=== PATIENT | male | born 1950 | race Caucasian/White ===

== ENCOUNTER → 2018-03-27 | Outpatient (REF) ==
--- NOTE | 2018-03-27 14:04 | REP ---
BILATERAL HIPS, AP PELVIS: HISTORY: Bilateral hip pain. RIGHT HIP: There is no acute fracture or dislocation. There is mild narrowing of the joint space with associated sclerosis. IMPRESSION: Degenerative change as described above. LEFT HIP: There is no acute fracture or dislocation. There is mild narrowing of the joints spaces with associated sclerosis. IMPRESSION: Degenerative change as described above. Electronically Signed by Sean Altman MD 03/27/2018 02:18 P
== END ==
LOC: M RAD 12:57
PROVIDERS: ATTEND Nurse Practitioner Family
DX: Z00.00 Encounter for general adult medical examination without abnormal findings (principal)

== ENCOUNTER → 2019-05-21 | Outpatient (CLI) | payer OTHER ==
--- NOTE | 2019-05-21 19:04 | REP ---
Clinical: Abnormal liver function tests. Technique: Real time franklin scale ultrasound examination using curved array transducer. Findings: Liver and visualized pancreas are normal in contour, size, echogenicity without focal hepatic or pancreatic lesion identified. The gallbladder is normal and without gallstones, wall thickening, or pericholecystic fluid. No biliary ductal dilatation is appreciated and the common bile duct measures 2.3 mm diameter. Right kidney is normal in reniform shape without hydronephrosis and measures 11.1 x 4.1 x 5.7 cm with 4 cm upper pole cyst. No pelvic fluid or adnexal mass lesion. Impression: 1. Normal liver. 2. 4 cm simple right renal cyst. Electronically Signed by Zeb Santiago MD 05/21/2019 06:56 P
== END ==
LOC: M RAD 09:14
PROVIDERS: ATTEND Nurse Practitioner Family
DX: N28.1 Cyst of kidney, acquired (principal)

== ENCOUNTER → 2020-05-28 | Outpatient (CLI) | payer OTHER | LOC: M LAB 15:19 | PROVIDERS: ATTEND Allergy & Immunology Allergy | DX: T78.05XA Anaphylactic reaction due to tree nuts and seeds, initial encounter (principal) ==

== ENCOUNTER → 2020-06-15 | Outpatient (CLI) | payer OTHER ==
--- NOTE | 2020-06-16 09:32 | REP ---
INDICATION: F/U. COMPARISON: None. TECHNIQUE: AP, lateral, tunnel and sunrise views of the left knee FINDINGS: The osseous structures are relatively normal in appearance. Small amount of chondrocalcinosis noted in the tibiofemoral joint space. Sentinel view demonstrates subtle chronic fraying along the anterior patellar margin suggesting patellar tendinopathy. No acute fracture or dislocation. No effusion. IMPRESSION: Mild degenerative changes. <Electronically signed by Zeb Santiago > 06/16/20 0928
== END ==
LOC: M SOG 15:00
PROVIDERS: ATTEND Orthopaedic Surgery Sports Medicine
DX: M17.12 Unilateral primary osteoarthritis, left knee (principal)

== ENCOUNTER 2020-12-25 12:15 | Emergency (ER) | payer OTHER ==
[~2020-12-25] VITALS: Ht 167.6 cm; Wt 78.7 kg
--- OUTSIDE RECORDS SUMMARY | 2020-12-25 12:21 | CCD | Continuity of Care Document ---
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 Role Phone [place], [place] Service AUTM [phone] Problems Description No Information Available Social History Type Date Description Comments Sex Unknown ETOH Use Occasionally consumes alcohol Tobacco Use Start: Unknown Patient has never smoked Sun Exposure moderate amount of sun exposure Sun Exposure Has never used tanning bed Sun Exposure Has experienced blistering from sunburns Sun Exposure Uses > 30 SPF intermittently Allergies, Adverse Reactions, Alerts Active Allergies Criticality Reaction | Severity Comments Date Penicillin Unable to assess criticality 08/07/2007 Bee Sting Unable to assess criticality 01/25/2010 Shellfish-derived Products Unable to assess criticality 01/25/2010 Pistachios Unable to assess criticality 01/25/2010 Medications Active Medications SIG Qnty Indications Ordering Provide r Date Diflucan 150mg Tablets 1 tab by mouth today may repeat in 1 week 2tabs B35.4 ZANDER Richards 11/17/2020 Triamcinolone Acetonide 0.5% Ointm ent apply to bilateral legs twice daily x 2 weeks then as needed for flares 30gm L85.3 ANTONINA Richards 01/29/2020 Ciclopirox 0.77% Gel apply to groin region twice a day x 2 weeks and as needed for flares 45gm B35.4 ANTONINA Richards 11/18/2019 Potassium Chloride ER Unknown Simvastatin Unknown Hydrochlorothiazide Unknown Aspirin 81mg Tablets Unknown Lidoderm Unknown Lisinopril Unknown Latanoprost Unknown Epipen 2-Reagan Unknown Immunizations Description No Information Available Vital Signs Date Vital Result Comment 11/17/2020 1:09pm BP Systolic 130 mmHg BP Diastolic 75 mmHg Weight 169.00 lb Height 66 inches 5'6" BMI (Body Mass Index) 27.3 kg/m2 01/28/2020 12:09pm BP Systolic 130 mmHg BP Diastolic 80 mmHg Weight 170.00 lb Body Temperature 98.3 F Results Description No Information Available Procedures Date Code Description Status 11/17/2020 85764 Office/Outpatient Established Mo d MDM 30-39 Min Completed 11/17/2020 11792 Destruction Of Lesions 2-14 Comp leted 11/17/2020 88759 Destruction Of Lesion First Comp leted Medical Devices Description No Information Available Encounters Type Date Location Provider Dx Diagnosis Office Visit 11/17/2020 1:00p Main Office VISHAL Richards L 57.0 Actinic keratosis D22.5 Melanocytic nevi of trunk L81.4 Other melanin hyperpigmentat ion L82.1 Other seborrheic keratosis L85.3 Xerosis cutis B35.4 Tinea corporis B37.2 Candidiasis of skin and nail D23.5 Other benign neoplasm of ski n of trunk 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 Other specified follicular d isorders L85.9 Epidermal thickening, unspec ified M89.371 Hypertrophy of bone, right a nkle and foot Z12.83 Encounter for screening for malignant neoplasm of skin Assessments Date Code Description Provider 11/17/2020 L57.0 Actinic keratosis Kesha VISHAL MoranMindy 11/17/2020 D22.5 Melanocytic nevi of trunk VISHAL RichardsMindy 11/17/2020 L81.4 Other melanin hyperpigmentation VISHAL Richards-Mindy 11/17/2020 L82.1 Other seborrheic keratosis Swapnas mohinder Spear [facility]- 11/17/2020 L85.3 Xerosis cutis VISHAL Hubbard 11/17/2020 B35.4 Tinea corporis Kesha franco [facility] 11/17/2020 B37.2 Candidiasis of skin and nail Liliam ANTONINA Wade 11/17/2020 D23.5 Other benign neoplasm of skin of trunk KeshaANTONINA Bethea 11/17/2020 L73.8 Other specified follicular disor ders KeshaANTONINA Bethea 11/17/2020 L85.9 Epidermal thickening, unspecifie salvador ANTONINA Richards 11/17/2020 M89.371 Hypertrophy of bone, right ankle and foot ANTONINA Richards 11/17/2020 Z12.83 Encounter for screening for natasha gnant neoplasm of skin ANTONINA Richards Plan of Treatment Future Appointment(s):* 12/01/2020 1:30 pm - ANTONINA Richards at Main Office * 11/18/2021 2:00 pm - ANTONINA Richards at Main Office 11/17/2020 - ANTONINA Richards* L57.0 Actinic keratosis* Comments:* LN2 to 2 Ak's today. Discussed that the areas treated will get red, bubble up /blister, maybe get a little weepy, form a scab then heal. Sunscreen use and sun protection discussed. Contact office if AK's fail to resolve despite treatment. * D22.5 Melanocytic nevi of trunk* Comments:* Nevus on back appear healthy. Monitor for changes. Sun protection and sunscreen use discussed. Literature given on monthly self-skin evaluations Should any moles change in shape or color, itch, bleed or burn, pt. will contact office for evaluation sooner than their interval appointment. Bush angioma - [facility]. * L81.4 Other melanin hyperpigmentation* Comments:* Sunscreen use and sun protection discussed. * L82.1 Other seborrheic keratosis* Comments:* [facility]urance. * L85.3 Xerosis cutis* Comments:* Stable.Continue Triamcinolone 0.5% ointment twice a day PRN for itching. Do not exceed TIW.Knows topical steroid safetyKnows not to over use.Mild cleansers and moisturizers. Call with problems. * B35.4 Tinea corporis* New Medication:* Diflucan 150 mg - 1 tab by mouth today may repeat in 1 week * Comments:* Flaring. Start Diflucan 150 mg: Take 1 tablet today; repeat in one week if needed.Continue Ciclopirox 0.77% gel PRN for flares. Knows to apply corn starch powder daily after showering.Knows to thoroughly pat dry before applying.Call with problems. * B37.2 Candidiasis of skin and nail* Comments:* See above. * D23.5 Other benign neoplasm of skin of trunk* Comments:* DF - [facility]. 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 * L85.9 Epidermal thickening, unspecified* Comments:* ReassuranceDiscussed if ever becomes irritated or catches on clothing we can remove in the future * M89.371 Hypertrophy of bone, right ankle and foot* Comments:* Reassurance. * Z12.83 Encounter for screening for malignant neoplasm of skin* Comments:* See above. * Follow up:* Yearly/PRN - [facility] 2-3 weeks - rash follow up Functional Status Description No Information Available Mental Status Description No Information Available Referrals Description No Information Available
--- OUTSIDE RECORDS SUMMARY | 2020-12-25 12:21 | CCD | Continuity of Care Document ---
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 Name Role Phone [place], [place] Service AUTM [phone] Problems Description No Information Available Social History Type Date Description Comments Sex Unknown ETOH Use Occasionally consumes alcohol Tobacco Use Start: Unknown Patient has never smoked Sun Exposure moderate amount of sun exposure Sun Exposure Has never used tanning bed Sun Exposure Has experienced blistering from sunburns Sun Exposure Uses > 30 SPF intermittently Allergies and adverse reactions Active Allergies Criticality Reaction | Severity Comments Date Penicillin Unable to assess criticality 08/07/2007 Bee Sting Unable to assess criticality 01/25/2010 Shellfish-derived Products Unable to assess criticality 01/25/2010 Pistachios Unable to assess criticality 01/25/2010 Medications Active Medications SIG Qnty Indications Ordering Provide r Date Triamcinolone Acetonide 0.5% Ointm ent apply to [...] Lisinopril Unknown Latanoprost Unknown Epipen 2-Reagan Unknown History Medications Diflucan 150mg Tablets 1 tab by mouth today may repeat in 1 week 2tabs B35.4 ZANDER Richards 11/17/2020 - 12/04/2020 Immunizations Description No Information Available Vital Signs Date Vital Result Comment 12/01/2020 1:36pm BP Systolic 144 mmHg BP Diastolic 85 mmHg Heart Rate 58 /min Weight 167.00 lb 11/17/2020 1:09pm BP Systolic 130 mmHg BP Diastolic 75 mmHg Weight 169.00 lb Height 66 inches 5'6" BMI (Body Mass Index) 27.3 kg/m2 Results Description No Information Available Procedures Date Code Description Status 12/01/2020 75172 Office/Outpatient Established Mo d MDM 30-39 Min Completed 11/17/2020 66632 Office/Outpatient Established Mo d MDM 30-39 Min Completed 11/17/2020 45991 Destruction Of Lesions 2-14 Comp leted 11/17/2020 59299 Destruction Of Lesion First Comp leted Medical Devices Description No Information Available Encounters Type Date Location Provider Dx Diagnosis Office Visit 12/01/2020 1:30p Main Office ANTONINA Richards B 35.4 Tinea corporis B37.2 Candidiasis of skin and nail L85.3 Xerosis cutis Office Visit 11/17/2020 1:00p Main Office ANTONINA Richards L 57.0 Actinic keratosis D22.5 Melanocytic [...] of skin Assessments Date Code Description Provider 12/01/2020 B35.4 Tinea corporis ANTONINA Hubbard 12/01/2020 B37.2 Candidiasis of skin and nail ANTONINA Leon 12/01/2020 L85.3 Xerosis cutis ANTONINA Hubbard 11/17/2020 L57.0 Actinic keratosis [facility] 11/17/2020 D22.5 Melanocytic nevi of trunk Keshasa Ignacio Spear [facility] 11/17/2020 L81.4 Other melanin hyperpigmentation Keshasa Ignacio Spear [facility] 11/17/2020 L82.1 Other seborrheic keratosis Babak vines Ignacio Spear [facility] 11/17/2020 L85.3 Xerosis cutis Kesha Ignacio franco [facility] 11/17/2020 B35.4 Tinea corporis Kesha Ignacio Edwarming franco [facility] 11/17/2020 B37.2 Candidiasis of skin and nail Liliam kindra Spear [facility] 11/17/2020 D23.5 Other benign neoplasm of skin of trunk Keshasa Ignacio Spear [facility] 11/17/2020 L73.8 Other specified follicular disor ders Keshasa Ignacio Spear [facility] 11/17/2020 L85.9 Epidermal thickening, unspecifie d Kesha Ignacio Spear [facility] 11/17/2020 M89.371 Hypertrophy of bone, right ankle and foot Kesha Spear [facility] 11/17/2020 Z12.83 Encounter for screening for natasha gnant neoplasm of skin ANTONINA Richards Plan of Treatment Future Appointment(s):* 03/02/2021 1:30 pm - ANTONINA Richards at Main Office * 11/18/2021 2:00 pm - ANTONINA Richards at Main Office 12/01/2020 - ANTONINA Richards* B35.4 Tinea corporis* Comments:* Improved.DC DiflucanContinue Ciclopirox 0.77% gel to R flank BID until clear and then PRN for flares. Knows to apply corn starch powder daily after showering.Knows to thoroughly pat dry before applying.Call with problems. * B37.2 Candidiasis of skin and nail* Comments:* See above. * L85.3 Xerosis cutis* Comments:* Stable.Continue Triamcinolone 0.5% ointment twice a day PRN for itching. Do not exceed TIW.Knows topical steroid safetyKnows not to over use.Recommended to moisturize with Vaseline or Aquaphor.Mild cleansers and moisturizers. Call with problems. * Follow up:* February 2021- [facility] [place] Status Description No Information Available Mental Status Description No Information Available Referrals Description No Information Available
--- OUTSIDE RECORDS SUMMARY | 2020-12-25 12:21 | CCD ---
Author Author [facility] Organization [facility] Address Unknown Phone Unavailable Care Team Providers Care Microbiology Quality Control Technician Name Role Phone Goran Hunt MD Unavailable Unavailable Goran Hunt MD Unavailable Unavailable Goran Hunt MD Unavailable Unavailable Goran Hunt MD Unavailable Unavailable Goran Hunt MD Unavailable Unavailable Goran Hunt MD Unavailable Unavailable Goran Hunt MD Unavailable Unavailable Goran Hunt MD Unavailable Unavailable Goran Hunt MD Unavailable Unavailable Goran Hunt MD Unavailable Unavailable Goran Hunt MD Unavailable Unavailable Goran Hunt MD Unavailable Unavailable Goran Hunt MD Unavailable Unavailable Goran Hunt MD Unavailable Unavailable Goran Hunt MD Unavailable Unavailable Goran Hunt MD Unavailable Unavailable Goran Hunt MD Unavailable Unavailable Goran Hunt MD Unavailable Unavailable Goran Hunt MD Unavailable Unavailable Goran Hunt MD Unavailable Unavailable Goran Hunt MD Unavailable Unavailable Goran Hunt MD Unavailable Unavailable Goran Hunt MD Unavailable Unavailable Goran Hunt MD Unavailable Unavailable Goran Hunt MD Unavailable Unavailable Goran Hunt MD Unavailable Unavailable Goran Hunt MD Unavailable Unavailable Goran Hunt MD Unavailable Unavailable Goran Hunt MD Unavailable Unavailable Goran Hunt MD Unavailable Unavailable FESTUS BHANDARI MD Unavailable Unavailable FESTUS BHANDARI MD Unavailable Unavailable FESTUS BHANDARI MD Unavailable Unavailable FESTUS BHANDARI MD Unavailable Unavailable FESTUS BHANDARI MD Unavailable Unavailable FESTUS BHANDARI MD Unavailable Unavailable FESTUS BHANDARI MD Unavailable Unavailable FESTUS BHANDARI MD Unavailable Unavailable FESTUS BHANDARI MD Unavailable Unavailable FESTUS BHANDARI MD Unavailable Unavailable CHROSTOWSKIFESTUS MD Unavailable Unavailable CHROSTOWSKIFESTUS MD Unavailable Unavailable CHROSTOWSKIFESTUS MD Unavailable Unavailable CHROSTOWSKIFESTUS MD Unavailable Unavailable CHROSTOWSKI, FESTUS MD Unavailable Unavailable CHROSTOWSKIFESTUS MD Unavailable Unavailable CHROSTOWSKIHUNGFESTUS MD Unavailable Unavailable CHROSTOWSKI, FESTUS MD Unavailable Unavailable CHROSTOWSKI, FESTUS MD Unavailable Unavailable CHROSTOWSKI, FESTUS MD Unavailable Unavailable CHROSTOWSKI, FESTUS MD Unavailable Unavailable CHROSTOWSKI, FESTUS MD Unavailable Unavailable CHROSTOWSKI, FESTUS MD Unavailable Unavailable CHROSTOWSKI, FESTUS MD Unavailable Unavailable CHROSTOWSKI, FESTUS MD Unavailable Unavailable CHROSTOWSKI, FESTUS MD Unavailable Unavailable CHROSTOWSKI, FESTUS MD Unavailable Unavailable CHROSTOWSKI, FESTUS MD Unavailable Unavailable CHROSTOWSKI, FESTUS MD Unavailable Unavailable CHROSTOWSKI, FESTUS MD Unavailable Unavailable CHROSTOWSKI, FESTUS MD Unavailable Unavailable CHROSTOWSKI, FESTUS MD Unavailable Unavailable CHROSTOWSKI, FESTUS MD Unavailable Unavailable CHROSTOWSKI, FESTUS MD Unavailable Unavailable CHROSTOWSKI, FESTUS MD Unavailable Unavailable CHROSTOWSKI, FESTUS MD Unavailable Unavailable CHROSTOWSKI, FESTUS MD Unavailable Unavailable CHROSTOWSKI, FESTUS MD Unavailable Unavailable CHROSTOWSKI, FESTUS MD Unavailable Unavailable Mcgovern, D Kesha AIRPLANE PILOT PHOTOGRAMMETRY-C Unavailable Unavailable Mcgovern, D Kesha AIRPLANE PILOT PHOTOGRAMMETRY-C Unavailable Unavailable Mcgovern, D Kesha AIRPLANE PILOT PHOTOGRAMMETRY-C Unavailable Unavailable Mcgovern, D Kesha AIRPLANE PILOT PHOTOGRAMMETRY-C Unavailable Unavailable Mcgovern, D Kesha AIRPLANE PILOT PHOTOGRAMMETRY-C Unavailable Unavailable Mcgovern, D Kesha AIRPLANE PILOT PHOTOGRAMMETRY-C Unavailable Unavailable Mcgovern, D Kesha AIRPLANE PILOT PHOTOGRAMMETRY-C Unavailable Unavailable Re-disclosure Warning The records that you are about to access may contain information from federally-assisted alcohol or drug abuse programs. If such information is present, then the following federally mandated warning applies: This information has been disclosed to you from records protected by federal confidentiality rules (42 CFR part 2). The federal rules prohibit you from making any further disclosure of this information unless further disclosure is expressly permitted by the written consent of the person to whom it pertains or as otherwise permitted by 42 CFR part 2. A general authorization for the release of medical or other information is NOT sufficient for this purpose. The Federal rules restrict any use of the information to criminally investigate or prosecute any alcohol or drug abuse patient.The records that you are about to access may contain highly sensitive health information, the redisclosure of which is protected by Article 27-F of the [facility] Public Health law. If you continue you may have access to information: Regarding HIV / AIDS; Provided by facilities licensed or operated by the [facility] Office of Mental Health; or Provided by the [facility] Office for People With Developmental Disabilities. If such information is present, then the following [facility] mandated warning applies: This information has been disclosed to you from confidential records which are protected by state law. State law prohibits you from making any further disclosure of this information without the specific written consent of the person to whom it pertains, or as otherwise permitted by law. Any unauthorized further disclosure in violation of state law may result in a fine or half-way sentence or both. A general authorization for the release of medical or other information is NOT sufficient authorization for further disc losure. Family History Family Member Name Family Member Gender Family Member Status Date o f Status Description Data Source(s) Unknown Female Problem [facility] ([facility]) Encounters Encounter Providers Location Date Indications Data Source(s ) Outpatient Attender: Kesha Mcgovern [facility]- Main Office 12/01/2020 01:30:00 PM EDT [facility] ([facility] Outpatient Attender: Kesha Mcgovern [facility]- Main Office 11/17/2020 01:00:00 PM EDT [facility] ([facility]) Outpatient Attender: Clarke Garcia/Thong/Lance/Sri indl 06/15/2020 02:45:00 PM EDT [facility] ([facility] Outpatient Attender: FESTUS BHANDARI MD Main Office 04/30/2020 09:15:00 AM EST [facility] ([facility] Immunizations Vaccine Date Status Description Data Source(s) COVID-19 VACCINE Moderna 04/01/2020 12:00:00 AM EST completed NYSIIS Vaccine Series Complete: YESThis Data wa s Submitted to [facility] Via [employer]. COVID-19 VACCINE Moderna 03/04/2020 12:00:00 AM EST completed NYSIIS Vaccine Series Complete: NOThis Data was Submitted to [facility] [employer]. Medications Medication Brand Name Start Date Product Form Dose Route Admi nistrative Instructions Pharmacy Instructions Status Indications Reaction Description Data Source(s) 150 mg 11/17/2020 12:00:00 AM EDT tablet 2 TAKE 1 TABLET BY MOUTH TODAY MAY REPEAT IN 1 WEEK TAKE 1 TABLET BY MOUTH TODAY MAY REPEAT IN 1 WEEK SOLD : 11/19/2020 [facility] 0.5 % 11/17/2020 12:00:00 AM EDT ointment 30 APPLY TO BILATERAL LEGS TWO TIMES A DAY FOR 2 WEEKS THEN NEEDED FOR FLARES APPLY TO BILATERAL LEGS TWO TIMES A DAY FOR 2 WEEKS THEN NEEDED FOR FLARES SOLD: 11/19/2020 [facility] 0.77 % 11/17/2020 12:00:00 AM EDT gel 45 APPLY TO GROIN REGION TWO TIMES A DAY FOR 2 WEEKS THEN NEEDED FOR FLARES APPLY TO GROIN REGION TWO TIMES A DAY FOR 2 WEEKS THEN NEEDED FOR FLARES SOLD: 11/19/2020 [facility] Fluconazole 150 MG Oral Tablet [Diflucan] Diflucan 11/17/2020 1 2:00:00 AM EDT ORAL completed [facility] ([facility]) Flonase Allergy Relief Flonase Allergy Relief 04/30/2020 12:00:[address] active [facility] ([facility] 60 ACTUAT Fluticasone propionate 0.25 MG /ACTUAT / salmeterol 0.05 MG/ACTUAT Dry Powder Inhaler [Advair] Advair Diskus 04/30/2020 12:00:00 AM EST RESPIRATORY active [facility] ([facility]) 0.3 mg/0.3 mL 03/03/2020 12:00:00 AM EST auto-injector 2 INJECT 1 PEN INTRAMUSCULARLY ONCE NEEDED DIRECTED INJECT 1 PEN INTRAMUSCULARLY ONCE NEEDED DIRECTED SOLD: 03/03/2020 [facility] 50 mg 03/03/2020 12:00:00 AM EST tablet 10 TAKE ONE TABLET BY MOUTH EVERY DAY TAKE ONE TABLET BY MOUTH EVERY DAY SOLD: 03/03/2020 [facility] Triamcinolone Acetonide 0.005 MG/MG Topical Ointment Triamci nolone Acetonide 01/29/2020 12:00:00 AM EST active [facility] ([facility]) 0.5 % 01/29/2020 12:00:00 AM EST ointment 30 APPLY TO BILATERAL LEGS TWO TIMES A DAY FOR 2 WEEKS THEN NEEDED APPLY TO BILATERAL LEGS TWO TIMES A DAY FOR 2 WEEKS THEN NEEDED SOLD: 01/31/2020 [facility] 0.77 % 11/27/2019 12:00:00 AM EDT cream 30 APPLY TO GROIN REGION TWO TIMES A DAY FOR 2 WEEKS APPLY TO GROIN REGION TWO TIMES A DAY FOR 2 WEEKS SOLD : 11/29/2019 [facility] 0.77 % 11/20/2019 12:00:00 AM EDT gel 45 APPLY TO GROIN REGION TWO TIMES A DAY FOR 14 DAYS APPLY TO GROIN REGION TWO TIMES A DAY FOR 14 DAYS SOLD : 11/20/2019 [facility] 5 % 11/19/2019 12:00:00 AM EDT cream 40 APPLY TO BILATERAL CHEEKS AND NOSE SPARINGLY TWO TIMES A DAY FOR 14 DAYS APPLY TO BILATERAL CHEEKS AND NOSE SPARINGLY TWO TIMES A DAY FOR 14 DAYS SOLD: 11/20/2019 [facility] ciclopirox 0.0077 MG/MG Topical Gel Ciclopirox 11/18/2019 12:00:00 AM EDT active [facility] ([facility]) Insurance Providers Payer name Policy type / Coverage type Policy ID Covered republican ID Covered republican's relationship to [place] Policy [place] [id number] SP [id number] 'S ADMINISTRATION [id number] SP [id number] [place] O [id number] S [id number] [place] [id number] SP [id number] 43 Medicare [id number] Medicare [id number] 3A ID IDENTIFICATION [id number] Other Insurance [id number] MEDICARE C [id number] S [id number] A MEDICARE [id number] SP [id number] [place] [id number] [place] [facility] [place] P [id number] S [id number] Problems, Conditions, and Diagnoses No Information Surgeries/Procedures Procedure Description Date Indications Data Source(s) OFFICE OUTPATIENT VISIT 25 MINUTES 12/01/2020 12:00:00 AM EDT [facility] ([facility]) DESTRUCTION PREMALIGNANT LESION 1ST 11/17/2020 12:00:0 0 AM EDT [facility] ([facility]) DESTRUCTION PREMALIGNANT LESION 2-14 EA 11/17/2020 12: 00:00 AM EDT [facility] ([facility]) OFFICE OUTPATIENT VISIT 25 MINUTES 11/17/2020 12:00:00 AM EDT [facility] ([facility]) BRNCDILAT RSPSE SPMTRY PRE&POST-BRNCDILAT ADMN 021 12:00:00 AM EST [facility] ([facility]) PERCUTANEOUS TESTS W/ALLERGENIC EXTRACTS 04/30/2020 12 :00:00 AM EST [facility] ([facility]) INTRACUTANEOUS TESTS W/ALLERGENIC EXTRACTS 04/30/2020 12:00:00 AM EST [facility] ([facility]) Results ID Date Data Source [id number] 05/28/2020 03:53:00 PM EDT [facility] ([facility]) Name Value Range Interpretation Code Description Data Rabia rce(s) Supporting Document(s) IgE [Mass/volume] in Serum 329.0 IU/ml Above high normal [facility] ([facility]) ID Date Data Source [id number] 06/04/2020 07:05:00 AM EDT [facility] Name Value Range Interpretation Code Description Data Rabia rce(s) Supporting Document(s) Referral Test Name [facility] WALNUT BALCK FOOD IGE Referral Lab [facility] Eurofins Viracor Referral Test Code or Mnemonic [facility] 90328 Referral Test Results [facility] Reference lab report sent via fax. Procedure Social History No Information Vital Signs ID Date Data Source UNK Name Value Range Interpretation Code Description Data Source(s) Systolic blood pressure 144 mm[Hg] 144 mm[Hg] M EDENT ([facility]) Diastolic blood pressure 85 mm[Hg] 85 mm[Hg] [facility] ([facility]) Heart rate 58 /min 58 /min [facility] ([facility]) Body weight 167.00 [lb_av] 167.00 [lb_av] MEDEN T ([facility]) Systolic blood pressure 130 mm[Hg] 130 mm[Hg] M EDENT ([facility]) Diastolic blood pressure 75 mm[Hg] 75 mm[Hg] [facility] ([facility]) Body weight 169.00 [lb_av] 169.00 [lb_av] MEDEN T ([facility]) Body height 66 [in_i] 66 [in_i] [facility] ([facility]) 5'6" Body mass index (BMI) [Ratio] 27.3 kg/m2 27.3 k g/m2 [facility] ([facility]) Systolic blood pressure 128 mm[Hg] 128 mm[Hg] [facility] ([facility]) Diastolic blood pressure 84 mm[Hg] 84 mm[Hg] [facility] ([facility]) Heart rate 64 /min 64 /min [facility] ([facility]) Oxygen saturation in Arterial blood by Pulse oximetry 97 % 97 % [facility] ([facility]) Respiratory rate 16 /min 16 /min [facility] ( [facility]) Body temperature 98.3 [degF] 98.3 [degF] [facility] ([facility]) Body height 66 [in_i] 66 [in_i] [facility] ([facility]) 5'6" Body weight 175.00 [lb_av] 175.00 [lb_av] [facility] Body mass index (BMI) [Ratio] 28.2 kg/m2 28.2 k g/m2 [facility] ([facility]) [place] body weight 142 [lb_av] 142 [lb_av] [facility] Body weight 79.380 kg 79.380 kg [facility] ([facility]) Body surface area Derived from formula 1.89 m2 1.89 m2 [facility] ([facility]) Systolic blood pressure 130 mm[Hg] 130 mm[Hg] M EDENT ([facility]) Diastolic blood pressure 80 mm[Hg] 80 mm[Hg] [facility] ([facility]) Body weight 170.00 [lb_av] 170.00 [lb_av] MED[facility] T ([facility]) Body temperature 98.3 [degF] 98.3 [degF] [place] ([facility])
--- NOTE | 2020-12-25 14:43 | REP ---
INDICATION: trauma COMPARISON: 07/27/2012. TECHNIQUE: Five views right knee. FINDINGS: There is no evidence of acute fracture, dislocation, or intrinsic bone disease.There is mild medial joint space narrowing. There is no radiographic evidence of a significant joint effusion. IMPRESSION: No fracture or dislocation. <Electronically signed by Jace Melgoza > 12/25/20 1556
--- OUTSIDE RECORDS SUMMARY | 2020-12-25 16:55 | CCD ---
Author Author [facility] Organization [facility] Address Unknown Phone Unavailable Care Team Providers Care Stick Feeder Name Role Phone Goran Hunt MD Unavailable [...] MD Unavailable Unavailable CHROSTOWSKIFESTUS MD Unavailable Unavailable CHROSTOWSKIFETSUS MD Unavailable Unavailable CHROSTOWSKIFESTUS MD Unavailable Unavailable [...] FESTUS MD Unavailable Unavailable Mcgovern, D Kesha SHOP TECHNICIAN-C Unavailable Unavailable Mcgovern, D Kesha SHOP TECHNICIAN-C Unavailable Unavailable Mcgovern, D Kesha SHOP TECHNICIAN-C Unavailable Unavailable Mcgovern, D Kesha SHOP TECHNICIAN-C Unavailable Unavailable Mcgovern, D Kesha SHOP TECHNICIAN-C Unavailable Unavailable Mcgovern, D Kesha SHOP TECHNICIAN-C Unavailable Unavailable Mcgovern, D Kesha SHOP TECHNICIAN-C Unavailable Unavailable Re-disclosure Warning The records that [...] is protected by Article 27-F of the [facility] Public Health law. If you continue you may have access to information: Regarding HIV / AIDS; Provided by facilities licensed or operated by the [facility] Office of Mental Health; or Provided by the [facility] Office for People With Developmental Disabilities. If such information is present, then the following [facility] mandated warning applies: This information has been [...] law may result in a fine or longterm sentence or both. A general authorization for the release of medical or other information is NOT sufficient authorization for further disc losure. Family History Family Member Name Family Member Gender Family Member Status Date o f Status Description Data Source(s) Unknown Female Problem [facility] ([facility]) Encounters Encounter Providers Location Date Indications Data Source(s ) Outpatient Attender: Kesha Mcgovern [facility]- Main Office 12/01/2020 01:30:00 PM EDT [facility] ([facility]) Outpatient Attender: Kesha Mcgovern [facility]- Main Office 11/17/2020 01:00:00 PM EDT [facility] ([facility]) Outpatient Attender: Clarke Garcia/Thong/Lance/Sri indl 06/15/2020 02:45:00 PM EDT [facility] ([facility]) Outpatient Attender: FESTUS BHANDARI MD Main Office 04/30/2020 09:15:00 AM EST [facility] ([facility] Immunizations Vaccine Date Status Description Data Source(s) COVID-19 VACCINE Moderna 04/01/2020 12:00:00 AM EST completed NYSIIS Vaccine Series Complete: YESThis Data wa s Submitted to [facility] [employer]. COVID-19 VACCINE Moderna 03/04/2020 12:00:00 AM EST completed [facility]SIIS Vaccine Series Complete: NOThis Data was Submitted to [facility] [employer]. Medications Medication Brand Name Start Date Product [...] WEEKS THEN NEEDED FOR FLARES SOLD: 11/19/2020 [facility] 0.77 % 11/17/2020 12:00:00 AM EDT [...] [facility] ([facility]) 60 ACTUAT Fluticasone propionate 0.25 MG /ACTUAT / salmeterol 0.05 MG/ACTUAT Dry Powder Inhaler [Advair] Advair Diskus 04/30/2020 12:00:00 AM EST RESPIRATORY active [facility] ([facility]) 0.3 mg/0.3 mL 03/03/2020 12:00:00 AM EST auto-injector 2 INJECT 1 PEN INTRAMUSCULARLY ONCE NEEDED DIRECTED INJECT 1 PEN INTRAMUSCULARLY ONCE NEEDED DIRECTED SOLD: 03/03/2020 [facility] 50 mg 03/03/2020 12:00:00 AM EST tablet 10 TAKE ONE TABLET BY MOUTH EVERY DAY TAKE ONE TABLET BY MOUTH EVERY DAY SOLD: 03/03/2020 [facility] Triamcinolone Acetonide 0.005 MG/MG Topical Ointment [...] relationship to [place] Policy [place] Plan Information [facility] DEPT [id number] SP [id number] [place] [id number] SP [id number] 43 'S ADMINISTRATION [id number] SP [id number] [place] O [id number] S [id number] [place] [employer] [id number] SP [id number] 43 Medicare [id number] Medicare [id number] 3A ID IDENTIFICATION [id number] Other Insurance [id number] MEDICARE C [id number] S [id number] A MEDICARE [id number] SP [id number] A Medicare [place] Medicare Primary [id number] Self [facility] [id number] S [id number] Problems, Conditions, and Diagnoses No Information Surgeries/Procedures Procedure Description Date Indications Data Source(s) OFFICE OUTPATIENT VISIT 25 MINUTES 12/01/2020 12:00:00 AM EDT [facility] ([facility]) DESTRUCTION PREMALIGNANT LESION 1ST 11/17/2020 12:00:0 0 AM EDT [facility] ([facility]) DESTRUCTION PREMALIGNANT LESION 2-14 EA 11/17/2020 12: 00:00 AM EDT [facility] ([facility]) OFFICE OUTPATIENT VISIT 25 MINUTES 11/17/2020 12:00:00 AM EDT [facility] ([facility]) BRNCDILAT RSPSE SPMTRY PRE&POST-BRNCDILAT ADMN 021 12:00:00 AM EST [facility] ([facility]) PERCUTANEOUS TESTS W/ALLERGENIC EXTRACTS 04/30/2020 12 :00:00 AM EST [facility] ([facility]) INTRACUTANEOUS TESTS W/ALLERGENIC EXTRACTS 04/30/2020 12:00:00 AM EST [facility] ([facility]) Results ID Date Data Source [id number] 05/28/2020 03:53:00 PM EDT [facility] ([facility] Name Value Range Interpretation Code Description Data Rabia rce(s) Supporting Document(s) IgE [Mass/volume] in Serum 329.0 IU/ml Above high normal [facility] ([facility]) ID Date Data Source [id number] 06/04/2020 07:05:00 AM EDT [facility] Name Value Range Interpretation Code Description Data Rabia rce(s) Supporting Document(s) Referral Test Name [facility] WALNUT BALCK FOOD IGE Referral Lab [facility] [employer] [facility]ac[employer] Referral Test Code or Mnemonic [facility] [id number] Referral Test Results [facility] Reference lab report sent via fax. Procedure Social History No Information Vital Signs ID Date Data Source UNK Name Value Range Interpretation Code Description Data Source(s) Systolic blood pressure 144 mm[Hg] 144 mm[Hg] M EDENT ([facility]) Diastolic blood pressure 85 mm[Hg] 85 mm[Hg] [facility] ([facility]) Heart rate 58 /min 58 /min [facility] ([facility]) Body weight 167.00 [lb_av] 167.00 [lb_av] MEDEN T ([facility]) Systolic blood pressure 130 mm[Hg] 130 mm[Hg] M EDENT ([facility]) Diastolic blood pressure 75 mm[Hg] 75 mm[Hg] [facility] ([facility]) Body weight 169.00 [lb_av] 169.00 [lb_av] MEDEN T ([facility]) Body height 66 [in_i] 66 [in_i] [facility] 5'6" Body mass index (BMI) [Ratio] 27.3 kg/m2 27.3 k g/m2 [facility] ([facility]) Systolic blood pressure 128 mm[Hg] 128 mm[Hg] [facility] ([facility]) Diastolic blood pressure 84 mm[Hg] 84 mm[Hg] [facility] ([facility]) Heart rate 64 /min 64 /min [facility] ([facility]) Oxygen saturation in Arterial blood by Pulse oximetry 97 % 97 % [facility] ([facility]) Respiratory rate 16 /min 16 /min [facility] ( [facility]) Body temperature 98.3 [degF] 98.3 [degF] [facility] ([facility]) Body height 66 [in_i] 66 [in_i] [facility] ([facility]) 5'6" Body weight 175.00 [lb_av] 175.00 [facility]_av[facility] Body mass index (BMI) [Ratio] 28.2 kg/m2 28.2 k g/m2 [facility] ([facility]) [place] body weight 142 [lb_av] 142 [lb_av] [facility] Body weight 79.380 kg 79.380 kg [facility] ([facility]) Body surface area Derived from formula 1.89 m2 1.89 m2 [facility] ([facility]) Systolic blood pressure 130 mm[Hg] 130 mm[Hg] [facility] Diastolic blood pressure 80 mm[Hg] 80 mm[Hg] [facility] ([facility]) Body weight 170.00 [lb_av] 170.00 [lb_av] [place] [facility] ([facility]) Body temperature 98.3 [degF] 98.3 [degF] [place] ([facility])
[2020-12-25 17:03] VITALS: BP 170/100
== END 2020-12-25 17:30 | disposition home or self-care (01) ==
LOC: M ED 12:15
DX: S80.01XA Contusion of right knee, initial encounter (principal); W22.09XA Striking against other stationary object, initial encounter; Y92.9 Unspecified place or not applicable; Y93.9 Activity, unspecified; Y99.0 Civilian activity done for income or pay; I10 Essential (primary) hypertension

== ENCOUNTER → 2021-11-10 | Outpatient (CLI) | payer OTHER | LOC: M SOG 08:19 | PROVIDERS: ATTEND Orthopaedic Surgery Adult Reconstructive Orthopaedic Surgery | DX: M17.12 Unilateral primary osteoarthritis, left knee (principal) ==

== ENCOUNTER → 2024-06-07 | Outpatient (CLI) | payer MEDICARE, OTHER | LOC: M PLAIMG 13:12 | PROVIDERS: ATTEND Family Medicine | DX: H93.3X1 Disorders of right acoustic nerve (principal) ==